=== PATIENT | male | born 1975 | race Hispanic/Latino ===

== ENCOUNTER 2020-05-06 09:01 | Outpatient (CLI) | payer OTHER ==
--- NOTE | 2020-05-06 09:45 | RAD ---
Exam: 1 view abdomen HISTORY: Left lower quadrant and right upper quadrant hematuria. FINDINGS: None specific bowel gas pattern. Limited evaluation of the renal shadow due to bowel gas and fecal material. No obvious calcifications projecting over either renal silhouette or the expected course of either ureter No acute osseous abnormalities IMPRESSION: No radiographic evidence of nephrolithiasis or ureterolithiasis.
--- NOTE | 2020-05-06 10:00 | CT ---
CT Abdomen Pelvis WO Con 05/06/2020 9:44 AM HISTORY: Hematuria, and left lower quadrant and right upper quadrant abdominal pain. COMPARISON: None. Technique: Multiple contiguous axial CT images are obtained through the abdomen and pelvis without IV contrast. Coronal reformats are provided. FINDINGS: This examination is limited for the evaluation of solid organs and vascular structures due to the lac k of intravenous contrast. Lower Chest: Calcified granuloma right middle lobe. Mild bibasilar atelectasis. Heart is mildly enlar ged Abdomen: Liver: Grossly normal non-enhanced CT appearance. Gallbladder: Within normal limits for CT imaging. Pancreas: Grossly normal nonenhanced CT appearance. Spleen: Grossly normal nonenhanced CT appearance. Adrenals: Grossly normal nonenhanced CT appearance. Kidneys: Punctate approximately 1 mm calculus midportion left kidney. No right renal calculus is seen , and there is no hydronephrosis. Ureters: No ureteral calculus is seen.. Pelvis: Urinary bladder: Incompletely distended but otherwise grossly within normal limits for nonenhanced ap pearance. Reproductive Organs: No pelvic masses. Lymph Nodes: No enlarged lymph nodes. Bowel: Scattered colonic diverticuli in the descending colon. Small amount retained fecal material se en throughout the colon. Loops of small bowel are normal in caliber. Appendix: The appendix is normal in caliber. Peritoneum: No free fluid, free air, or fluid collection. Retroperitoneum: within normal limits. Vessels: Abdominal aorta is normal in caliber. Incidental note is made of a circumaortic left renal v ein.. Abdominal Wall: within normal limits. Bones: No lytic or sclerotic osseous lesions. Right convex curvature thoracic spine is seen on the sc out image. IMPRESSION: 1. Punctate nonobstructing left renal calculus. No ureteral calculus is seen, and there is no hydrone phrosis or hydroureter. 2. Colonic diverticulosis. 3. No CT evidence of appendicitis. 4. Cardiomegaly. 5. Right convex curvature thoracic spine.
--- NOTE | 2020-05-06 10:27 | ULT ---
ULTRASOUND ABDOMEN: HISTORY: Right upper quadrant pain FINDINGS: The liver, gallbladder, kidneys and visualized portions of the pancreas, spleen, aorta and IVC appear normal. The common duct measures 3 mm in diameter. No free fluid is seen. IMPRESSION: No evidence of cholelithiasis.
== END 2020-05-06 09:02 | disposition home or self-care (01) ==
LOC: MADCT 09:01
PROVIDERS: ATTEND Family Medicine
DX: R10.32 Left lower quadrant pain (principal); R10.11 Right upper quadrant pain; R31.9 Hematuria, unspecified; N20.0 Calculus of kidney; K57.30 Diverticulosis of large intestine without perforation or abscess without bleeding; I51.7 Cardiomegaly; M43.9 Deforming dorsopathy, unspecified
CPT/HCPCS: 74018; 74176; 93975